=== PATIENT | female | born 1960 | race Two or more races ===

== ENCOUNTER 2018-03-20 08:53 | Emergency (ER) | payer OTHER ==
[~2018-03-20] VITALS: Ht 157.5 cm; Wt 77.5 kg
[2018-03-20 09:00] VITALS: BP 106/63
--- NOTE | 2018-03-20 09:05 | NUR ---
LAST ATE 03/19/18 AT 2330
[2018-03-20] MEDS ORDERED: HYDROmorphone 1 MG/ML, 1ML ONE (09:22)
[2018-03-20] MEDS ORDERED: ETOMIDATE 20 MG/10 ML ONE (09:22)
[2018-03-20] MEDS ORDERED: ONDANSETRON ODT 4 MG ONE (09:22)
[2018-03-20] MEDS ORDERED: ONDANSETRON 2MG/ML, 2ML ONE (09:26)
[2018-03-20] MEDS ORDERED: HYDROmorphone 1 MG/ML, 1ML IVPush PRN (09:30)
[2018-03-20] MEDS ORDERED: ONDANSETRON 2MG/ML, 2ML IVPush ONE (09:30)
[2018-03-20] MEDS ORDERED: ONDANSETRON ODT 4 MG PO ONE (09:30)
[2018-03-20] MEDS ORDERED: ETOMIDATE 20 MG/10 ML IV ONE (09:30)
--- NOTE | 2018-03-20 10:07 | NUR ---
LT ANKLE REDUCTION COMPLETED IN ED RM 2. SEE PAPER CHARTING
== END 2018-03-20 12:23 | disposition home or self-care (01) ==
LOC: ED 11:09
DX: S82.852A Displaced trimalleolar fracture of left lower leg, initial encounter for closed fracture (principal); W01.0XXA Fall on same level from slipping, tripping and stumbling without subsequent striking against object, initial encounter; Y93.89 Activity, other specified; Y92.89 Other specified places as the place of occurrence of the external cause; Y99.8 Other external cause status
CPT/HCPCS: 27818; 73590; 73600; 73610; 99285; J1170; J2405; 27840